=== PATIENT | female | born 1990 | race Caucasian/White ===

== ENCOUNTER 2022-09-25 14:57 | Outpatient (CLI) | payer OTHER ==
[2022-09-25 17:05] LABS: BHCG - Serum Negative (NEGATIVE); Pregs Control Background? CLEAR/WHITE (CLR/WHITE); Pregs Control Bar Appear? YES (CONTROL BAR)
== END 2022-09-25 14:58 | disposition home or self-care (01) ==
LOC: CSHLAB 14:57
PROVIDERS: ATTEND Podiatrist Foot & Ankle Surgery
DX: Z01.812 Encounter for preprocedural laboratory examination (principal); T14.8XXA Other injury of unspecified body region, initial encounter
CPT/HCPCS: 84703

== ENCOUNTER 2022-09-26 12:02 | Day surgery (SDC) | payer OTHER ==
[2022-09-22 13:55] VITALS: BMI 33.1
[2022-09-26] MEDS ORDERED: CEFAZOLIN 2 GM VIAL ONE (14:15)
[2022-09-26] MEDS ORDERED: PROPOFOL 20 ML ONE (14:20)
[2022-09-26] MEDS ORDERED: Ketorolac Tromethamine 30 MG/ML VIAL ONE (14:21)
[2022-09-26] MEDS ORDERED: Dexamethasone 20 MG/5 ML VIAL ONE (14:21)
[2022-09-26] MEDS ORDERED: fentaNYL 50 mcg/mL 1 mL Vial ONE ×2 (14:21→14:44)
[2022-09-26] MEDS ORDERED: Ondansetron PF 4 MG/2 ML Vial ONE (14:21)
[2022-09-26] MEDS ORDERED: Midazolam HCl 2 mg/2 ml Vial ONE (14:21)
[2022-09-26] MEDS ORDERED: Glycopyrrolate 0.2 MG/ML 5 ML SYRINGE ONE (14:22)
[2022-09-26] MEDS ORDERED: Neomycin-Polymyxin 1 ML AMP ONE (14:38)
[2022-09-26] MEDS ORDERED: Bupivacaine 0.5% 10 ML VIAL ONE (14:51)
== END 2022-09-26 16:35 | disposition home or self-care (01) ==
LOC: CSHSDC 12:02
PROVIDERS: ATTEND Podiatrist Foot & Ankle Surgery
PROC: 0QBN0Z2 Excision of Right Metatarsal, Sesamoid Bone(s) 1st Toe, Open Approach (ICD-10-PCS; principal; 2022-09-26)
DX: S92.811A Other fracture of right foot, initial encounter for closed fracture (principal); M25.871 Other specified joint disorders, right ankle and foot; I10 Essential (primary) hypertension; Z79.899 Other long term (current) drug therapy; Z90.49 Acquired absence of other specified parts of digestive tract; X58.XXXA Exposure to other specified factors, initial encounter
CPT/HCPCS: J1100; J1885; J2250; J2405; J2704; J3010; J3490

== ENCOUNTER 2023-02-19 16:22 | Emergency (ER) | payer OTHER ==
[2023-02-19 18:05] LABS: Bilirubin Neg (Negative); Blood, Urine 25 (Negative); Clarity Clear (Clear); Glucose, Urine (Dipstick) Normal (Negative); Ketone, Urine Negative (Negative); Leukocyte 25 (Negative); Nitrite Positive (Negative); Protein, Urine (Dipstick) 15 mg/dl (Neg-Trace); Urobilinogen Normal mg/dL (Less than 2); pH, Urine 6.5 (5.0-9.0)
[2023-02-19 18:16] LABS: Bacteria/HPF 4+ HPF (None Seen); CAUTI Indications for Culture Pelvic or flank pain; Mucous/LPF 1+ LPF (<2+); RBC/HPF 0-3 HPF (0-3); WBC/HPF 0-3 HPF (0-3)
[2023-02-19 18:16] LABS: #Eosinphils 0.1 10x3/uL (0.0-0.5); #Monocytes 0.5 10x3/uL (0.0-1.1); #Neutrophils 5.7 10x3/uL (1.5-8.4); %Basophils 0.4 % (0.0-2.0); %Eosinophils 1.4 % (0.0-6.0); %Lymphocytes 21.7 % (18.0-47.0); %Monocytes 6.2 % (0.0-10.0); %Neutrophils 70.1 % (40.0-75.0); Hematocrit 36.9 % (34.9-44.5); Hemoglobin 12.7 g/dL (12.0-15.5); Mean Corpuscular HGB CONC 34.4 g/dL (32.0-36.0); Mean Corpuscular Hemoglobin 31.7 pg (27.0-33.0); Mean Platelet Volume 10.4 fl (7.4-10.4); Platelet Count 219 10x3/uL (150-450); RBC Distribution Width 11.9 % (11.5-14.5); Red Blood Cell (RBC) Count 4.01 10x6/uL (3.90-5.03); White Blood Cell (WBC) Count 8.1 10x3/uL (3.5-10.5)
[2023-02-19 18:17] LABS: Urine Culture Reflex No No
[2023-02-19 18:24] LABS: ALT (SGPT) 9 U/L (8-55); AST (SGOT) 9 U/L (5-34); Alkaline Phosphatase 65 U/L (40-110); Anion Gap 13 mmol/L (10-20); BUN (Urea Nitrogen) 8 mg/dL (7.0-18.7); Bilirubin, Total 0.2 mg/dL (0.2-1.2); Calc. Creatinine Clearance 0 mL/min (70-130); Carbon Dioxide 22 mmol/L (22-29); Chloride 108 mmol/L (98-107); Estimated GFR 119; Globulin 2.7 g/dL (2.4-3.5); Glucose 71 mg/dL (70-105); Protein, Total 6.7 g/dL (6.0-8.3); Sodium 139 mmol/L (136-145)
[2023-02-19] MEDS ORDERED: cefTRIAXone (ROCEPHIN) 1 GM VIAL ONE (18:45)
[2023-02-19] MEDS ORDERED: Sterile Water 10 ML ONE (18:47)
== END 2023-02-19 19:12 | disposition home or self-care (01) ==
LOC: CSHERS 16:22
DX: O23.41 Unspecified infection of urinary tract in pregnancy, first trimester (principal); N39.0 Urinary tract infection, site not specified; Z3A.10 10 weeks gestation of pregnancy
CPT/HCPCS: 36415; 76856; 80053; 81001; 85025; 87077; 87086; 87186; 96372; J0696